=== PATIENT | female | born 1945 | race American Indian/Alaskan Native ===

== ENCOUNTER 2019-07-14 07:58 | Outpatient (CLI) | payer MEDICARE, OTHER ==
--- NOTE | 2019-07-20 11:28 | Mammography Report ---
UNSUCCESSFUL STEREOTACTIC BIOPSY RIGHT BREAST INDICATION: RIGHT BREAST CALCIFICATIONS. COMPARISON: Outside images were provided. FINDINGS: Outside images were reviewed and the patient was placed on the stereotactic table for targeting of ca lcifications in the outer breast. After targeting, the coordinates suggested that the calcifications of interest may in fact be dermal. Since no tangential imaging of the calcifications was performed, t he stereotactic procedure was canceled. No skin incision was made. IMPRESSION: 1. Unsuccessful stereotactic biopsy right breast. 2. The patient was scheduled to return for tangential views of the right breast and for a possible re peat stereotactic biopsy procedure.. Signer Name: Zaid Perales MD Signed: 07/20/2019 11:23 AM Workstation Name: [id number]
== END 2019-07-14 07:59 | disposition home or self-care (01) ==
LOC: SPVWC 07:58
PROVIDERS: ATTEND Surgery
DX: R92.0 Mammographic microcalcification found on diagnostic imaging of breast (principal); Z53.8 Procedure and treatment not carried out for other reasons

== ENCOUNTER 2019-07-19 10:44 | Outpatient (CLI) | payer MEDICARE, OTHER ==
--- NOTE | 2019-07-19 14:37 | Mammography Report ---
DIGITAL DIAGNOSTIC MAMMOGRAM WITH CAD, 07/19/2019 INDICATION: Right breast calcifications. She returns for a tangential view for further workup of calc ifications. TECHNIQUE: Digital right mammographic imaging was performed. A BB was placed on the skin from a late ral medial approach using a paddle with a grid. A tangential view was then obtained in the project ion. COMPARISON: Outside mammograms. FINDINGS: Breast Density: The breast is heterogeneously dense, which may obscure small masses. A single small cluster of calcifications does not appear to be within the skin on the tangential view . IMPRESSION: Calcifications which are suspicious and are apparently not dermal. Recommend return for s tereotactic biopsy of the right breast. Follow up recommendation: Biopsy BI-RADS Category 4: Suspicious for Malignancy. A "normal" o negative report should not discourage follow up or biopsy of a clinically significant fi nding. A written summary of these findings will be mailed to the patient. The patient will be entered into a mammography reporting system which will generate a reminder letter for the patient's next appointmen t at the appropriate interval. According to the [employer], yearly mammograms are recommended starting at age 40 and continuing as long as a woman is in good health. Breast MRI is recommended for women with an saleem roximately 20-25% or greater lifetime risk of breast cancer, including women with a strong family his tory of breast or ovarian cancer and women who have been treated for Hodgkin's disease. Signer Name: Zaid Perales MD Signed: 07/19/2019 2:33 PM Workstation Name: [id number]
== END 2019-07-19 10:45 | disposition home or self-care (01) ==
LOC: SPVWC 10:44
PROVIDERS: ATTEND Surgery
DX: R92.8 Other abnormal and inconclusive findings on diagnostic imaging of breast (principal)

== ENCOUNTER 2019-07-28 12:29 | Outpatient (CLI) | payer MEDICARE, OTHER ==
--- NOTE | 2019-07-29 11:17 | Mammography Report ---
DIGITAL DIAGNOSTIC MAMMOGRAM WITH CAD, 07/28/2019 INDICATION: Immediately status post stereotactic biopsy of calcifications. POST CLIP BIOPSY TECHNIQUE: Digital right mammographic imaging was performed. This examination was interpreted with the benefit of Computer-aided Detection analysis. COMPARISON: 07/19/2019 FINDINGS: Breast Density: The breast is heterogeneously dense, which may obscure small masses. The targeted calcifications have been removed and a biopsy clip at 9:30 o'clock correlates with the b iopsy site. IMPRESSION: Successful stereotactic biopsy with concordant clip placement. Follow up recommendation: No recall. Post biopsy imaging. A "normal" or negative report should not discourage follow up or biopsy of a clinically significant f inding. A written summary of these findings will be mailed to the patient. The patient will be entered into a mammography reporting system which will generate a reminder letter for the patient's next appointmen t at the appropriate interval. According to the [employer], yearly mammograms are recommended starting at age 40 and continuing as long as a woman is in good health. Breast MRI is recommended for women with an saleem roximately 20-25% or greater lifetime risk of breast cancer, including women with a strong family his tory of breast or ovarian cancer and women who have been treated for Hodgkin's disease. Signer Name: Zaid Perales MD Signed: 07/29/2019 11:12 AM Workstation Name: [id number]
--- NOTE | 2019-07-29 11:33 | Mammography Report ---
STEREOTACTIC NEEDLE BIOPSY WITH CLIP PLACEMENT RIGHT BREAST INDICATION: Right breast calcifications.. COMPARISON: 07/19/2019 FINDINGS: Informed consent was obtained and a time out was called. The patient was placed prone on the [facility] ct biopsy table. The skin was cleansed with betadine. Using stereotactic guidance, sterile technique and 1% lidocaine for skin anesthesia and 2% lidocaine with epinephrine for deep anesthesia, 8-gauge Mammotome vacuum-assisted biopsy was performed from a C C from below approach. Samples were obtained around the clock face and medical detail representative calcifications were identified on a specimen radiograph. A localizer clip was placed at the biopsy site and the prob e was removed. Hemostasis was achieved with pressure to the site. A sterile dressing was applied. A post procedure mammogram demonstrated removal of the targeted calcifications and concordant locatio n of the biopsy clip. The patient tolerated the procedure well and there were no apparent complicatio ns. She left the department in good condition with a cold pack applied to the biopsy site and she was given instructions for wound care and follow-up. IMPRESSION: 1. Successful uncomplicated right stereotactic breast biopsy.. Signer Name: Zaid Perales MD Signed: 07/29/2019 11:29 AM Workstation Name: [id number]
== END 2019-07-28 12:30 | disposition home or self-care (01) ==
LOC: SPVWC 12:29
PROVIDERS: ATTEND Surgery
DX: R92.1 Mammographic calcification found on diagnostic imaging of breast (principal); R92.8 Other abnormal and inconclusive findings on diagnostic imaging of breast
CPT/HCPCS: 19081; 77065; 88305; A4648